=== PATIENT | female | born 1960 | race Caucasian/White ===

== ENCOUNTER → 2025-02-14 | Outpatient (CLI) | payer MEDICARE, SELFPAY ==
--- NOTE | 2025-02-14 | XR_ITS ---
Examination: Knee bilateral, 6 views Technique: Knee AP, lateral, oblique each knee total 6 views Date and time of exam: February 14, 2025 1400 hours INDICATIONS: Bilateral knee pain beginning several years ago. FINDINGS: Moderate osteopenia Bilateral advanced tricompartment osteoarthritis, most severe narrowing medial joint spaces No fractures Meniscus calcification IMPRESSION: Bilateral advanced tricompartment osteoarthritis
--- NOTE | 2025-02-14 12:20 | XR_ITS ---
Examination: Bone densitometry Date and time of exam:February 14, 2025 1228 hours INDICATIONS: Menopause age 50 vitamin D 5 years, family history father hip fracture, grandmother osteoporosis Technique: Lumbar spine and hip total bone mineralization values of an calculated. Peak reference and age match control results have been displayed. Findings: Lumbar spine total bone mineralization is1.312 gm/cm2. This is 2.4 standard deviations above peak reference. This is 4.3 standard deviations above age-matched controls. Hip total bone mineralization is 0.995 gm/cm2 This is 0.4 standard deviations above peak reference. This is 1.7 standard deviations above age-matched controls Impression: There is normal mineralization based on lumbar spine measurements. There is normal mineralization based on hip measurements Lumbar mineralization is decreased 0.5% compare with October 31, 2021 Hip mineralization is decreased 7.4% compared with October 31, 2021
== END | disposition home or self-care (01) ==
LOC: CDIM 11:51
PROVIDERS: Referring Provider Nurse Practitioner; Visit Provider Nurse Practitioner
DX: M81.0 Age-related osteoporosis without current pathological fracture (principal); M17.0 Bilateral primary osteoarthritis of knee
CPT/HCPCS: 73562; 77080

== ENCOUNTER 2025-03-28 10:00 | Outpatient (RCR) | payer MEDICARE, SELFPAY ==
--- NOTE | 2025-03-13 11:51 | PTNOTE_ITS ---
PT OP Initial Eval Patient Information Outpatient Physical Therapy Treatment Date: 03/13/25 Visit Reasons: Bilateral knee pain Medical Diagnosis: Bilateral Knee Pain Treatment Dx #1: Bilateral Knee Pain Treatment Dx #2: Bilateral Knee Mobility Deficits Start of Care: 03/13/25 Date of Onset: 5 years ago Smoking Status Smoking Status: Never smoker Initial Assessment Subjective: Pt is a 64 y/o female reports of chronic knee pain L>R worsening lately. Pt's average knee pain is 6-8/10 based upon activities. Pt's most xray showed moderate to severe DDD of the knee L>R. Pt is pending knee MRI. Pt has limitaiton with standing, walking, kneeling, squating, cooking, chores, and recreational activities. Objective: Left Knee AROM: -10 deg to 100 deg with pain Right Knee AROM: 0 deg to 120 deg with pain Knee MMTs: grossly 4-/5 Hip MMTs: grossly 3+/5 Muscle Length: Hs tightness L>R Assessment: Pt demonstrate bilateral knee pain with moblity deficits consistent with xray findings leading to difficulty with ADLs. Due to the state and nature of patient's knee Pt has poor prognosis with physical therapy and will recommend ortho consult if conservative treatments does not help. If patient's pain continues to persist Pt will be refer back to provider for further consultation. 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
--- NOTE | 2025-03-28 11:12 | PT.ODAYNRPT ---
PT Outpatient Daily Note OP Daily Note Outpatient Physical Therapy Treatment Date: 03/28/25 Visit Reasons: Bilateral knee pain Subjective: Pt's knee is about the same. No change in pain lately. Pt's MD was able to order MRI. MRI is pending in April 2025 Objective: Please see flow chart for list of ther ex performed Assessment: tolerate supine exercises; increase knee flexion AROM bilaterally post PT session Plan: Continue with PT Length of Time (minutes) of Treatment: 30 Minutes Procedure Charges Therapeutic Exercise 30 minutes: Yes
== END 2025-03-29 23:59 | disposition home or self-care (01) ==
LOC: CPTX 10:00
PROVIDERS: PCP Nurse Practitioner; Referring Provider Nurse Practitioner; Visit Provider Nurse Practitioner
DX: M25.562 Pain in left knee (principal); M25.561 Pain in right knee; G89.29 Other chronic pain; R26.2 Difficulty in walking, not elsewhere classified
CPT/HCPCS: 97110; 97162

== ENCOUNTER → 2025-03-30 | Outpatient (CLI) | payer MEDICARE, SELFPAY ==
--- NOTE | 2025-03-30 14:45 | XR_ITS ---
Exam: MRI knee without contrast, right Date and time of exam: March 30, 2025 1552 hours Comparison October 18, 2015 INDICATIONS: Right knee pain 7 months instability, history medial meniscus tears Technique: Multiple axial, coronal, and sagittal sections on the knee have been obtained. T2-Weighted sagittal, fat-suppressed images, TR 3,500, TE 62, T2 weighted coronal fat-saturated images, TR 3,500, TE 62 Proton density sagittal sections, TR 1800, TE 31. T-1 weighted coronal images, TR 524, TE 13.0 Findings: Medial meniscus anterior horn is intact. Medial meniscus, body extrusion the joint space with truncation inner margin. Posterior horn medial meniscus replaced by isointense signal. Lateral meniscus anterior horn is intact Lateral meniscus, body is intact Posterior horn lateral meniscus is intact Anterior cruciate ligament moderately attenuated Posterior cruciate ligament appears intact. Knee effusion is moderate. Quadriceps and patellar tendons appear intact. There is no evidence of tendinosis. Inflammatory change or fracture of Hoffa's fat pad is not seen. Medial patellar facet demonstrates severe thinning. Lateral patellar facet cartilage demonstrates severe thinning. Trochlear cartilage demonstrates severe thinning. Marrow signal adequate. Medial collateral ligament appears intact. No meniscocapsular separation is seen. Illiotibial band and fibular collateral ligament are intact. Biceps femoris tendons appear intact. Medial femoral condylar articular cartilage demonstrates severe thinning. Lateral femoral condylar articular cartilage demonstratesmoderate thinning. Tibial plateau cartilage demonstrates severe medial thinning. Impression: Tears of the body and posterior horn medial meniscus Moderate attenuation anterior cruciate ligament Severe thinning cartilage medial and patellofemoral joints
--- NOTE | 2025-03-30 15:15 | XR_ITS ---
Exam: MRI knee without contrast, left Date and time of exam: March 30, 2025 1409 hours INDICATIONS: Medial left knee pain beginning 7 months ago Technique: Multiple axial, coronal, and sagittal sections on the knee have been obtained. T2-Weighted sagittal, fat-suppressed images, TR 3,500, TE 62, T2 weighted coronal fat-saturated images, TR 3,500, TE 62 Proton density sagittal sections, TR 1800, TE 31. T-1 weighted coronal images, TR 524, TE 13.0 Findings: Medial meniscus anterior horn truncation inner margin. Medial meniscus, body replaced by a also intense signal and extruded from the joint space. Posterior horn medial meniscus complex tears including horizontal linear and vertical components. Lateral meniscus anterior horn is intact Lateral meniscus, body is intact Posterior horn lateral meniscus is intact Anterior cruciate ligament is markedly attenuated Posterior cruciate ligament appears intact. Knee effusion is moderate. Quadriceps and patellar tendons appear intact. There is no evidence of tendinosis. Inflammatory change or fracture of Hoffa's fat pad is not seen. Medial patellar facet demonstrates severe thinning. Lateral patellar facet cartilage demonstrates severe thinning. Trochlear cartilage demonstrates severe thinning. Marrow signal adequate. Medial collateral ligament appears intact. No meniscocapsular separation is seen. Illiotibial band and fibular collateral ligament are intact. Biceps femoris tendons appear intact. Medial femoral condylar articular cartilage demonstrates severe thinning. Lateral femoral condylar articular cartilage demonstratesmoderate thinning. Tibial plateau cartilage demonstrates severe medial thinning. Impression: Complex extensive tears body and posterior horn medial meniscus Severe thinning cartilage patellofemoral and medial joint spaces
== END | disposition home or self-care (01) ==
PROVIDERS: PCP Nurse Practitioner; Referring Provider Nurse Practitioner; Visit Provider Nurse Practitioner
DX: S83.242A Other tear of medial meniscus, current injury, left knee, initial encounter (principal); S83.241A Other tear of medial meniscus, current injury, right knee, initial encounter; X58.XXXA Exposure to other specified factors, initial encounter; M25.862 Other specified joint disorders, left knee; M25.861 Other specified joint disorders, right knee
CPT/HCPCS: 73718

== ENCOUNTER 2025-05-25 08:58 | Outpatient (AMB) | payer MEDICARE, SELFPAY ==
[2025-05-25 09:19] VITALS: BP 125/84; PULSE 59; RESP 18; TEMP 36.8; O2SAT 96; BMI 33.6
--- NOTE | 2025-05-25 09:19 | PD.ORTHCLVIS ---
Vital signs 05/25/25 09:19 Height 1.68 m Height Method Stated Weight 94.546 kg Weight Measurement Method Standing Scale BMI 33.6 BP 125/84 Blood Pressure Source Automatic Cuff Blood Pressure Location Right Upper Arm Position Sitting Respiration 18 Pulse 59 L Pulse Source Monitor Temp 98.3 F Temp Source Temporal Artery Scan Pulse Oximetry (%) 96 Oxygen Delivery Method Room Air Med/Allergies Allergies & Medications Allergies cephalexin (From Keflex) Allergy (Intermediate, Verified 05/25/25 09:20) Rash codeine Allergy (Intermediate, Verified 05/25/25 09:20) itching Sulfa (Sulfonamide Antibiotics) Allergy (Intermediate, Verified 05/25/25 09:20) Rash Medication Reconciliation atorvastatin 10 mg tablet 10 mg PO DAILY 03/07/22 [History Confirmed 05/25/25] irbesartan 300 mg tablet 300 mg PO DAILY 03/07/22 [History Confirmed 05/25/25] omeprazole 20 mg capsule,delayed release 10 mg PO QDAY 03/07/22 [History Confirmed 05/25/25] loratadine 10 mg tablet (Claritin) 10 mg PO QDAY 05/05/22 [History Confirmed 05/25/25] amlodipine 10 mg tablet (Norvasc) 10 mg PO QDAY 05/25/25 [History Confirmed 05/25/25] atorvastatin 10 mg tablet (Lipitor) 10 mg PO QDAY 05/25/25 [History Confirmed 05/25/25] celecoxib 100 mg capsule 100 mg PO BID 05/25/25 [History Confirmed 05/25/25] Exam Exam Patient is in no acute distress and is cooperative with the examination today. Breathing is nonlabored. In no respiratory distress. Bilateral extremities were evaluated and demonstrates sensation intact to light touch. Palpable pedal pulses are present. No significant edema is present. Bilateral hips were examined. The patient has no pain with log roll of the hips. Internal rotation to 30 degrees and external rotation to 30 degrees is painless. Negative FADIR. The left knee was examined. The left knee is in varus alignment. Range of motion from 0-115 degrees. Knee is stable to varus and valgus as well as AP translation with <5mm. Patient has a negative McMurrays. There is no pain with patellofemoral compression and no crepitus noted. The knee is tender to palpation medially. The right knee was also examined. The right knee is in varus alignment. Range of motion from 0-120 degrees. Knee is stable to varus and valgus as well as AP translation with <5mm. Patient has a negative McMurrays. There is no pain with patellofemoral compression and no crepitus noted. The knee is tender to palpation medially. Assessment and Plan Problem List (1) Degenerative arthritis of knee, bilateral: Status: Acute Plan: Patient is a 64-year-old female with bilateral knee pain and severe bilateral knee arthritis. We discussed different treatment options. We will start with cortisone injections of as well as weightbearing x-rays. She Diaz has severe [id number] arthritis of both knees as her when nonweightbearing x-rays demonstrate complete obliteration. She is not interested in surgery at this time and would like to continue with conservative management Advanced Care Planning Discussion Advance care planning discussed with:: patient Office Procedures GNS Level of Care Nursing/Assessment Patient Status: Established Patient Nursing Assessment/Reassesment: Medication Reconciliation, Update PMH in EMR and Vital Signs Coordination of Care: Complex Care and Chronic Disease 1-5, Education Complex Pt/Fam, Consent,records obtained, informed consent, Results/Orders obtained and Staff clarify orders Established Patient Charge Established Patient Point Assignment: 95 Established Patient Point Charge: EP Level 3 (80-115) MA Intake Visit Data Collection New Patient or Established: Established Patient (seen at [facility] within 3 years) Reason for Visit:: BILATERAL KNEE PAIN, LEFT IS WORSE Seen by Clinical Staff ONLY (RN/MA): No Verbal consent obtained for Telemed visit?: No Dependency Counselor Required: No PCP or OBGYN visit in last 3 months: Yes Hx Now: No Do You Feel Safe at Home: Yes Authorities Contacted: N/A Questionairres Past Medical History Past Medical History Have you ever been diagnosed with any of the following: Neurological Problems Seizures: No Cardiology Problems Heart Murmur: Yes Hypercholesterolemia: Yes (TAKES MED) Congestive Heart Failure: No Edema: No Cellulitis: No Hypertension: Yes (TAKES MED) Varicose Veins: No Respiratory Problems Chronic Obstructive Pulmonary Disease (COPD): No Pneumonia: No Tuberculosis: No Pulmonary Embolism: No Sleep Apnea: No Stomache/Intestinal Problems Hepatitis: No Gastroesophageal Reflux Disease: Yes Obesity: Yes Genital/Urinary Problems Renal Disease: No Reproductive Problems Previous Pregnancies: Yes (X4) Musculoskeletal Problems Arthritis: Yes Endocrine Problems Diabetes Mellitus Type 1: No Diabetes Mellitus Type 2: No Other Problems Hospitalization: No Shingles: Yes (2009) Falls: No Blood Transfusions: No Anesthesia Reactions: No Chemotherapy: No Radiation Therapy: No MRSA: No Chicken Pox: Yes Measles: Yes Mumps: Yes Rubella (Maltese Measles): Yes Cancer: No Surgical History Hysterectomy: No (1 tube and ovary removed) Pacemaker: No Thyroidectomy: No Subjective Visit Visit for: new patient and knee Immunization / Flu Flu Vaccine in the Last 12 Months: Yes Flu Vaccine Exclusion Criteria: Already Received History of Present Illness Chief complaint: bilateral knee pain with left being worse Date of injury / onset of symptoms: years Date of 1st surgery (if applicable): left meniscus sx Vianca is a pleasant 64-year-old female with severe bilateral knee arthritis. This has been ongoing for a while. She has tried formal physical therapy as well as Celebrex which helps quite a bit. She is going on a trip in late May and would like injections closer to then. She reports that she is interested in surgery at this time Personal History Occupation: retired Red flag PMH: BMI and other (specify) BMI Counceling provided: Yes Pain Pain level (0-10): 3 Pain duration: constant Pain location: inside (medial), outside (lateral) and anterior Pain quality: sharp, dull and aching Pain timing: increases with activity and stairs Associated signs & symptoms: none Ambulatory data Ambulatory device: none Treatments Improvement with previous injections: No Improvement with PT: Yes Improvement with NSAIDS: yes Review of Systems Review of Systems: All systems negative unless otherwise noted in HPI.
== END 2025-05-25 09:46 | disposition home or self-care (01) ==
PROVIDERS: PCP Nurse Practitioner; Referring Provider Nurse Practitioner; Supervising Provider Orthopaedic Surgery Adult Reconstructive Orthopaedic Surgery; Visit Provider Orthopaedic Surgery Adult Reconstructive Orthopaedic Surgery
DX: M17.0 Bilateral primary osteoarthritis of knee (principal); M25.562 Pain in left knee; M25.561 Pain in right knee; I10 Essential (primary) hypertension; E78.00 Pure hypercholesterolemia, unspecified; K21.9 Gastro-esophageal reflux disease without esophagitis
CPT/HCPCS: 99213; G0463

== ENCOUNTER 2025-06-20 09:38 | Outpatient (AMB) | payer MEDICARE, SELFPAY ==
--- NOTE | 2025-06-20 10:08 | ORTHONT_ITS ---
Vital signs 06/20/25 10:09 Height 1.68 m Height Method Stated Weight 93.1 kg Weight Measurement Method Standing Scale BMI 33.0 BP 121/79 Blood Pressure Source Automatic Cuff Blood Pressure Location Left Upper Arm Position Sitting Respiration 18 Pulse 75 Pulse Source Monitor Temp 97.7 F Temp Source Temporal Artery Scan Pulse Oximetry (%) 96 Oxygen Delivery Method Room Air Med/Allergies Allergies & Medications Allergies cephalexin (From Keflex) Allergy (Intermediate, Verified 06/20/25 10:10) Rash codeine Allergy (Intermediate, Verified 06/20/25 10:10) itching Sulfa (Sulfonamide Antibiotics) Allergy (Intermediate, Verified 06/20/25 10:10) Rash Medication Reconciliation atorvastatin 10 mg tablet 10 mg PO DAILY 03/07/22 [History Confirmed 06/20/25] irbesartan 300 mg tablet 300 mg PO DAILY 03/07/22 [History Confirmed 06/20/25] omeprazole 20 mg capsule,delayed release 10 mg PO QDAY 03/07/22 [History Confirmed 06/20/25] loratadine 10 mg tablet (Claritin) 10 mg PO QDAY 05/05/22 [History Confirmed 06/20/25] amlodipine 10 mg tablet (Norvasc) 10 mg PO QDAY 05/25/25 [History Confirmed 06/20/25] atorvastatin 10 mg tablet (Lipitor) 10 mg PO QDAY 05/25/25 [History Confirmed 06/20/25] celecoxib 100 mg capsule 100 mg PO BID 05/25/25 [History Confirmed 06/20/25] Exam Exam Patient is in no acute distress and is cooperative with the examination today. Breathing is nonlabored. In no respiratory distress. Bilateral extremities were evaluated and demonstrates sensation intact to light touch. Palpable pedal pulses are present. No significant edema is present. Bilateral hips were examined. The patient has no pain with log roll of the hips. Internal rotation to 30 degrees and external rotation to 30 degrees is painless. Negative FADIR. The left knee was examined. The left knee is in varus alignment. Range of motion from 0-115 degrees. Knee is stable to varus and valgus as well as AP translation with <5mm. Patient has a negative McMurrays. There is no pain with patellofemoral compression and no crepitus noted. The knee is tender to palpation medially. The right knee was also examined. The right knee is in varus alignment. Range of motion from 0-120 degrees. Knee is stable to varus and valgus as well as AP translation with <5mm. Patient has a negative McMurrays. There is no pain with patellofemoral compression and no crepitus noted. The knee is tender to palpation medially. Assessment and Plan Problem List (1) Degenerative arthritis of knee, bilateral: Status: Acute Plan: Patient is a 64-year-old female with bilateral knee pain and severe bilateral knee arthritis. We discussed different treatment options. We will start with cortisone injections of as well as weightbearing x-rays. She has severe [id number] arthritis of both knees as her when nonweightbearing x-rays demonstrate complete obliteration. She is not interested in surgery at this time and would like to continue with conservative management Recommend knee cortisone injection as patient would like to proceed with conservative treatment at this time. The risks and benefits of the procedure were reviewed with the patient and patient gave verbal consent to continue with the procedure. Procedure: performed by Dr. Contreras Using sterile technique the left knee was thoroughly prepped with alcohol, and approximately 1 cc of Kenalog 40 mg/mL and 4 cc of 1% lidocaine was injected without resistance into the medial tibial femoral joint space. The patient tolerated the procedure. Advanced Care Planning Discussion Advance care planning discussed with:: patient Office Procedures GNS Level of Care Nursing/Assessment Patient Status: Established Patient Nursing Assessment/Reassesment: Medication Reconciliation, Update PMH in EMR and Vital Signs Coordination of Care: Complex Care and Chronic Disease 1-5, Education Complex Pt/Fam, Consent,records obtained, informed consent, Results/Orders obtained and Staff clarify orders Established Patient Charge Established Patient Point Assignment: 95 Established Patient Point Charge: EP Level 3 (80-115) Medication Given Medication Given Medication Given: Yes Documented Dose Given: 4 Route: Infiitration Medication Given Medication Given Medication Given: Yes Documented Dose Given: 1 Route: Infiitration Office Meds lidocaine HCl 10 mg/mL (1 %) injection solution Performing Provider: Vinnie Contreras MD Performing Location: [facility] Administered by: Vinnie Contreras MD on 06/20/25 10:00 Dose Route Admin Location Dispensed Lot Number Expiration Date [facility] Commodity Director 200 mg Infiltration KNEE 20 mL [id number] 12/30/28 98596-864-84 [employer] triamcinolone acetonide 40 mg/mL suspension for injection Performing Provider: Vinnie Contreras MD Performing Location: [facility] Administered by: Vinnie Contreras MD on 06/20/25 10:00 Dose Route Admin Location Dispensed Lot Number Expiration Date [facility] Commodity Director 40 mg IM KNEE 1 mL [id number] 12/30/26 03765-090-98 MYLAN SHELL ITUTI MA Intake Visit Data Collection New Patient or Established: Established Patient (seen at [facility] within 3 years) Reason for Visit:: LEFT KNEE PAIN Seen by Clinical Staff ONLY (RN/MA): No PCP or OBGYN visit in last 3 months: Yes Hx Now: No Do You Feel Safe at Home: Yes Authorities Contacted: N/A Questionairres Past Medical History Past Medical History Have you ever been diagnosed with any of the following: Neurological Problems Seizures: No Cardiology Problems Heart Murmur: Yes Hypercholesterolemia: Yes (TAKES MED) Congestive Heart Failure: No Edema: No Cellulitis: No Hypertension: Yes (TAKES MED) Varicose Veins: No Respiratory Problems Chronic Obstructive Pulmonary Disease (COPD): No Pneumonia: No Tuberculosis: No Pulmonary Embolism: No Sleep Apnea: No Smoking: No Smoking Exposure: No Stomache/Intestinal Problems Hepatitis: No Gastroesophageal Reflux Disease: Yes Obesity: Yes Genital/Urinary Problems Renal Disease: No Reproductive Problems Previous Pregnancies: Yes (X4) Musculoskeletal Problems Arthritis: Yes Endocrine Problems Diabetes Mellitus Type 1: No Diabetes Mellitus Type 2: No Other Problems Hospitalization: No Shingles: Yes (2009) Falls: No Blood Transfusions: No Anesthesia Reactions: No Chemotherapy: No Radiation Therapy: No MRSA: No Chicken Pox: Yes Measles: Yes Mumps: Yes Rubella (Faroese Measles): Yes Cancer: No Surgical History Hysterectomy: No (1 tube and ovary removed) Pacemaker: No Thyroidectomy: No Subjective Visit Visit for: follow up visit and knee Immunization / Flu Flu Vaccine in the Last 12 Months: No Flu Vaccine Exclusion Criteria: No Exclusion Criteria History of Present Illness Chief complaint: bilateral knee pain with left being worse Date of injury / onset of symptoms: years Date of 1st surgery (if applicable): left meniscus osvaldox Vianca is a pleasant 64-year-old female with severe bilateral knee arthritis. This has been ongoing for a while. She has tried formal physical therapy as well as Celebrex which helps quite a bit. She is going on a trip in late May and would like injections closer to then. She reports that she is not interested in surgery at this time Personal History Occupation: retired Red flag PMH: BMI and other (specify) BMI Counceling provided: Yes Pain Pain level (0-10): 1 Pain duration: constant Pain location: outside (lateral) and anterior Pain quality: sharp Pain timing: increases with activity and stairs Associated signs & symptoms: none Ambulatory data Ambulatory device: none Treatments Improvement with previous injections: No Improvement with PT: No Improvement with NSAIDS: no Review of Systems Review of Systems: All systems negative unless otherwise noted in HPI.
[2025-06-20 10:09] VITALS: BP 121/79; PULSE 75; RESP 18; TEMP 36.5; O2SAT 96; BMI 33.0
== END 2025-06-20 10:30 | disposition home or self-care (01) ==
PROVIDERS: PCP Nurse Practitioner; Referring Provider Nurse Practitioner; Supervising Provider Orthopaedic Surgery Adult Reconstructive Orthopaedic Surgery; Visit Provider Orthopaedic Surgery Adult Reconstructive Orthopaedic Surgery
DX: M17.0 Bilateral primary osteoarthritis of knee (principal); M25.562 Pain in left knee; M25.561 Pain in right knee; I10 Essential (primary) hypertension; E78.00 Pure hypercholesterolemia, unspecified; K21.9 Gastro-esophageal reflux disease without esophagitis; E66.9 Obesity, unspecified; Z68.33 Body mass index [BMI] 33.0-33.9, adult; Z71.3 Dietary counseling and surveillance
CPT/HCPCS: 20610; 99213; J3301; J3490; G0463

== ENCOUNTER → 2025-07-25 | Outpatient (CLI) | payer MEDICARE, SELFPAY ==
--- NOTE | 2025-07-25 | XR_ITS ---
Examination: Bilateral knees 2 views Right lateral knee left lateral knee 2 views Bilateral axial knee single view TECHNIQUE: Bilateral AP knees standing single view, bilateral PND standing single view flexure Right lateral mid left lateral knee 2 views Bilateral adnexal knees single view FINDINGS: Prominent osteopenia Severe narrowing, [id number] medial joint spaces Advanced bilateral osteoarthritis lateral patellofemoral joints No fractures IMPRESSION: Bilateral advanced tricompartment osteoarthritis, including severe narrowing bone on bone medial joint spaces
== END | disposition home or self-care (01) ==
PROVIDERS: PCP Nurse Practitioner; Referring Provider Orthopaedic Surgery Adult Reconstructive Orthopaedic Surgery; Visit Provider Orthopaedic Surgery Adult Reconstructive Orthopaedic Surgery
DX: M17.0 Bilateral primary osteoarthritis of knee (principal); M25.862 Other specified joint disorders, left knee; M25.861 Other specified joint disorders, right knee
CPT/HCPCS: 73564

== ENCOUNTER 2025-08-10 15:34 | Outpatient (AMB) | payer MEDICARE, SELFPAY ==
--- NOTE | 2025-08-10 15:42 | ORTHONT_ITS ---
Vital signs 08/10/25 15:43 Height 1.68 m Height Method Measured Weight 89.131 kg Weight Measurement Method Standing Scale BMI 31.6 BP 127/81 Blood Pressure Source Automatic Cuff Blood Pressure Location Left Upper Arm Position Sitting Respiration 18 Pulse 74 Pulse Source Monitor Temp 98.0 F Temp Source Temporal Artery Scan Pulse Oximetry (%) 95 Oxygen Delivery Method Room Air Med/Allergies Allergies & Medications Allergies cephalexin (From Keflex) Allergy (Intermediate, Verified 08/10/25 15:44) Rash codeine Allergy (Intermediate, Verified 08/10/25 15:44) itching Sulfa (Sulfonamide Antibiotics) Allergy (Intermediate, Verified 08/10/25 15:44) Rash Medication Reconciliation atorvastatin 10 mg tablet 10 mg PO DAILY 03/07/22 [History Confirmed 08/10/25] irbesartan 300 mg tablet 300 mg PO DAILY 03/07/22 [History Confirmed 08/10/25] omeprazole 20 mg capsule,delayed release 10 mg PO QDAY 03/07/22 [History Confirmed 08/10/25] loratadine 10 mg tablet (Claritin) 10 mg PO QDAY 05/05/22 [History Confirmed 08/10/25] amlodipine 10 mg tablet (Norvasc) 10 mg PO QDAY 05/25/25 [History Confirmed 08/10/25] atorvastatin 10 mg tablet (Lipitor) 10 mg PO QDAY 05/25/25 [History Confirmed 08/10/25] celecoxib 100 mg capsule 100 mg PO BID 05/25/25 [History Confirmed 08/10/25] Exam Exam Patient is in no acute distress and is cooperative with the examination today. Breathing is nonlabored. In no respiratory distress. Bilateral extremities were evaluated and demonstrates sensation intact to light touch. Palpable pedal pulses are present. No significant edema is present. Bilateral hips were examined. The patient has no pain with log roll of the hips. Internal rotation to 30 degrees and external rotation to 30 degrees is painless. Negative FADIR. The left knee was examined. The left knee is in varus alignment. Range of motion from 0-115 degrees. Knee is stable to varus and valgus as well as AP translation with <5mm. Patient has a negative McMurrays. There is no pain with patellofemoral compression and no crepitus noted. The knee is tender to palpation medially. The right knee was also examined. The right knee is in varus alignment. Range of motion from 0-120 degrees. Knee is stable to varus and valgus as well as AP translation with <5mm. Patient has a negative McMurrays. There is no pain with patellofemoral compression and no crepitus noted. The knee is tender to palpation medially. Bilateral knee x-rays demonstrates complete joint space obliteration medially and laterally with significant osteophytes. Assessment and Plan Problem List (1) Degenerative arthritis of knee, bilateral: Status: Acute Plan: Patient is a 64-year-old female with bilateral knee pain and severe bilateral knee arthritis. She has significant arthritis of both knees and failed conservative treatment with injections anti-inflammatories and physical therapy. We thus discussed total knee replacement as a medial option. The left knee is worse. The nature and purpose of the total knee replacement, alternative method(s) of treatment, the material risks involved, and the possibility of complications were fully explained to the patient. The patient does NOT have any of the following contraindications to TKA: - Active infection of the knee joint, OR - Active systemic bacteremia, OR - Active skin infection or open wound at surgical site, OR - Neuropathic arthritis, OR - Severe, rapidly progressive neurological disease, OR - Severe medical condition that makes risks of surgery outweigh the potential benefit The patient was told the most common risks and complications associated with a total knee replacement include, but are not limited to: blood clots in the leg, fatal pulmonary embolism, dislocation of the prosthesis, intraoperative and postoperative fractures of the femur or tibia, infection, failure of the prosthesis or grafting materials, complications from anesthesia, reactions to blood transfusions, postoperative leg length inequality, instability of the knee replacement, nerve damage or injury, vascular injury, delayed wound healing, infection, other injury or even . In addition, there are risks associated with anesthesia given during this operation. Also, the patient was told that after undergoing a total knee replacement there may still be persistent pain or disability. The patient was informed that the success of this operation in part depends upon the mechanical devices which are going to be implanted and that these devices can fail or malfunction, and may need to be repaired or replaced and there are no guarantees as to the longevity of this device or its parts and that it or its parts could fail prematurely. The patient was also notified that during the course of surgery, there may be a need to use bone graft from donors, and that any bone graft used will be carefully screened for communicable diseases, including AIDS, hepatitis, Pal-Creutzfeldt, or other diseases, but despite the screening procedures, the re is a small chance that they could contract one of these diseases. Finally, the patient was asked to follow completely and fully with all advice and recommended treatments, and that recovery and ultimate outcome are affected by their compliance with recommended treatment. We discussed the risks, benefits and treatment alternatives, and the patient is interested in proceeding with surgery. We will try to set this up as expeditiously as possible. Advanced Care Planning Discussion Advance care planning discussed with:: patient Office Procedures GNS Level of Care Nursing/Assessment Patient Status: Established Patient Nursing Assessment/Reassesment: Medication Reconciliation, Orthostatic Vitals, Update PMH in EMR and Vital Signs Coordination of Care: Complex Care and Chronic Disease 1-5, Education Complex Pt/Fam, Consent,records obtained, informed consent, Results/Orders obtained and Staff clarify orders Established Patient Charge Established Patient Point Assignment: 105 Established Patient Point Charge: EP Level 3 (80-115) MA Intake Visit Data Collection New Patient or Established: Established Patient (seen at [facility] within 3 years) Reason for Visit:: LEFT KNEE PAIN Seen by Clinical Staff ONLY (RN/MA): No PCP or OBGYN visit in last 3 months: Yes Hx Now: No Do You Feel Safe at Home: Yes Authorities Contacted: N/A Questionairres Past Medical History Past Medical History Have you ever been diagnosed with any of the following: Neurological Problems Seizures: No Cardiology Problems Heart Murmur: Yes Hypercholesterolemia: Yes (TAKES MED) Congestive Heart Failure: No Edema: No Cellulitis: No Hypertension: Yes (TAKES MED) Varicose Veins: No Respiratory Problems Chronic Obstructive Pulmonary Disease (COPD): No Pneumonia: No Tuberculosis: No Pulmonary Embolism: No Sleep Apnea: No Smoking: No Smoking Exposure: No Stomache/Intestinal Problems Hepatitis: No Gastroesophageal Reflux Disease: Yes Obesity: Yes Genital/Urinary Problems Renal Disease: No Reproductive Problems Previous Pregnancies: Yes (X4) Musculoskeletal Problems Arthritis: Yes Endocrine Problems Diabetes Mellitus Type 1: No Diabetes Mellitus Type 2: No Other Problems Hospitalization: No Shingles: Yes (2009) Falls: No Blood Transfusions: No Anesthesia Reactions: No Chemotherapy: No Radiation Therapy: No MRSA: No Chicken Pox: Yes Measles: Yes Mumps: Yes Rubella (Romansh Measles): Yes Cancer: No Surgical History Hysterectomy: No (1 tube and ovary removed) Pacemaker: No Thyroidectomy: No Subjective Visit Visit for: follow up visit and knee Immunization / Flu Flu Vaccine in the Last 12 Months: No Flu Vaccine Exclusion Criteria: No Exclusion Criteria History of Present Illness Chief complaint: bilateral knee pain with left being worse Date of injury / onset of symptoms: years Date of 1st surgery (if applicable): left meniscus sx Vianca is a pleasant 64-year-old female with severe bilateral knee arthritis. This has been ongoing for a while. She has tried formal physical therapy as well as Celebrex which helps quite a bit. She had some relief of the left knee pain has come back and is now screeching. She like to proceed with a total knee replacement as the pain is affecting her quality life and happiness. She has tried injections anti-inflammatories and physical therapy at this point. Personal History Occupation: retired Red flag PMH: BMI and other (specify) BMI Counceling provided: Yes Pain Pain level (0-10): 1 Pain duration: constant Pain location: outside (lateral) and anterior Pain quality: sharp Pain timing: increases with activity and stairs Associated signs & symptoms: none Ambulatory data Ambulatory device: none Treatments Improvement with previous injections: No Improvement with PT: No Improvement with NSAIDS: no Review of Systems Review of Systems: All systems negative unless otherwise noted in HPI.
[2025-08-10 15:43] VITALS: BP 127/81; PULSE 74; RESP 18; TEMP 36.7; O2SAT 95; BMI 31.6
== END 2025-08-10 15:57 | disposition home or self-care (01) ==
LOC: HODSRG 15:34
PROVIDERS: PCP Nurse Practitioner; Referring Provider Nurse Practitioner; Supervising Provider Orthopaedic Surgery Adult Reconstructive Orthopaedic Surgery; Visit Provider Orthopaedic Surgery Adult Reconstructive Orthopaedic Surgery
DX: M17.0 Bilateral primary osteoarthritis of knee (principal); M25.562 Pain in left knee; M25.561 Pain in right knee; I10 Essential (primary) hypertension; E78.00 Pure hypercholesterolemia, unspecified; K21.9 Gastro-esophageal reflux disease without esophagitis; E66.9 Obesity, unspecified; Z71.3 Dietary counseling and surveillance; Z68.31 Body mass index [BMI] 31.0-31.9, adult
CPT/HCPCS: 99213; G0463

== ENCOUNTER 2025-09-19 09:44 | Outpatient (AMB) | payer MEDICARE, SELFPAY ==
[2025-09-19 10:15] VITALS: BP 108/71; PULSE 72; RESP 18; TEMP 36.8; O2SAT 96; BMI 31.0
--- NOTE | 2025-09-19 10:15 | PD.ORTHCLVIS ---
Vital signs 09/19/25 10:15 Height 1.68 m Height Method Measured Weight 87.685 kg Weight Measurement Method Standing Scale BMI 31.0 BP 108/71 Blood Pressure Source Automatic Cuff Blood Pressure Location Left Upper Arm Position Sitting Respiration 18 Pulse 72 Pulse Source Monitor Temp 98.2 F Temp Source Temporal Artery Scan Pulse Oximetry (%) 96 Oxygen Delivery Method Room Air Med/Allergies Allergies & Medications Allergies cephalexin (From Keflex) Allergy (Intermediate, Verified 09/19/25 10:16) Rash codeine Allergy (Intermediate, Verified 09/19/25 10:16) itching Sulfa (Sulfonamide Antibiotics) Allergy (Intermediate, Verified 09/19/25 10:16) Rash Medication Reconciliation atorvastatin 10 mg tablet 10 mg PO DAILY 03/07/22 [History Confirmed 09/19/25] irbesartan 300 mg tablet 300 mg PO DAILY 03/07/22 [History Confirmed 09/19/25] omeprazole 20 mg capsule,delayed release 10 mg PO QDAY 03/07/22 [History Confirmed 09/19/25] loratadine 10 mg tablet (Claritin) 10 mg PO QDAY 05/05/22 [History Confirmed 09/19/25] amlodipine 10 mg tablet (Norvasc) 10 mg PO QDAY 05/25/25 [History Confirmed 09/19/25] atorvastatin 10 mg tablet (Lipitor) 10 mg PO QDAY 05/25/25 [History Confirmed 09/19/25] celecoxib 100 mg capsule 100 mg PO BID 05/25/25 [History Confirmed 09/19/25] Exam Exam Patient is in no acute distress and is cooperative with the examination today. Breathing is nonlabored. In no respiratory distress. Bilateral extremities were evaluated and demonstrates sensation intact to light touch. Palpable pedal pulses are present. No significant edema is present. Bilateral hips were examined. The patient has no pain with log roll of the hips. Internal rotation to 30 degrees and external rotation to 30 degrees is painless. Negative FADIR. The left knee was examined. The left knee is in varus alignment. Range of motion from 0-115 degrees. Knee is stable to varus and valgus as well as AP translation with <5mm. Patient has a negative McMurrays. There is no pain with patellofemoral compression and no crepitus noted. The knee is tender to palpation medially. The right knee was also examined. The right knee is in varus alignment. Range of motion from 0-120 degrees. Knee is stable to varus and valgus as well as AP translation with <5mm. Patient has a negative McMurrays. There is no pain with patellofemoral compression and no crepitus noted. The knee is tender to palpation medially. Bilateral knee x-rays demonstrates complete joint space obliteration medially and laterally with significant osteophytes. Assessment and Plan Problem List (1) Degenerative arthritis of knee, bilateral: Status: Acute Plan: Patient is a 64-year-old female with bilateral knee pain and severe bilateral knee arthritis. She has significant arthritis of both knees and failed conservative treatment with injections anti-inflammatories and physical therapy. We thus discussed total knee replacement as a medial option. The left knee is worse. The nature and purpose of the total knee replacement, alternative method(s) of treatment, the material risks involved, and the possibility of complications were fully explained to the patient. The patient does NOT have any of the following contraindications to TKA: - Active infection of the knee joint, OR - Active systemic bacteremia, OR - Active skin infection or open wound at surgical site, OR - Neuropathic arthritis, OR - Severe, rapidly progressive neurological disease, OR - Severe medical condition that makes risks of surgery outweigh the potential benefit The patient was told the most common risks and complications associated with a total knee replacement include, but are not limited to: blood clots in the leg, fatal pulmonary embolism, dislocation of the prosthesis, intraoperative and postoperative fractures of the femur or tibia, infection, failure of the prosthesis or grafting materials, complications from anesthesia, reactions to blood transfusions, postoperative leg length inequality, instability of the knee replacement, nerve damage or injury, vascular injury, delayed wound healing, infection, other injury or even . In addition, there are risks associated with anesthesia given during this operation. Also, the patient was told that after undergoing a total knee replacement there may still be persistent pain or disability. The patient was informed that the success of this operation in part depends upon the mechanical devices which are going to be implanted and that these devices can fail or malfunction, and may need to be repaired or replaced and there are no guarantees as to the longevity of this device or its parts and that it or its parts could fail prematurely. The patient was also notified that during the course of surgery, there may be a need to use bone graft from donors, and that any bone graft used will be carefully screened for communicable diseases, including AIDS, hepatitis, Pal-Creutzfeldt, or other diseases, but despite the screening procedures, there is a small chance that they could contract one of these diseases. Finally, the patient was asked to follow completely and fully with all advice and recommended treatments, and that recovery and ultimate outcome are affected by their compliance with recommended treatment. We discussed the risks, benefits and treatment alternatives, and the patient is interested in proceeding with surgery. We will try to set this up as expeditiously as possible. Advanced Care Planning Discussion Advance care planning discussed with:: patient Office Procedures GNS Level of Care Nursing/Assessment Patient Status: Established Patient Nursing Assessment/Reassesment: Medication Reconciliation, Update PMH in EMR and Vital Signs Coordination of Care: Complex Care and Chronic Disease 1-5, Education Complex Pt/Fam, Consent,records obtained, informed consent, Results/Orders obtained and Staff clarify orders Established Patient Charge Established Patient Point Assignment: 95 Established Patient Point Charge: EP Level 3 (80-115) MA Intake Visit Data Collection New Patient or Established: Established Patient (seen at [facility] within 3 years) Reason for Visit:: PRE OP RIGHT TKA Seen by Clinical Staff ONLY (RN/MA): No Decoration Checker Required: No PCP or OBGYN visit in last 3 months: Yes Hx Now: No Do You Feel Safe at Home: Yes Authorities Contacted: N/A Questionairres Past Medical History Past Medical History Have you ever been diagnosed with any of the following: Neurological Problems Seizures: No Cardiology Problems Heart Murmur: Yes Hypercholesterolemia: Yes (TAKES MED) Congestive Heart Failure: No Edema: No Cellulitis: No Hypertension: Yes (TAKES MED) Varicose Veins: No Respiratory Problems Chronic Obstructive Pulmonary Disease (COPD): No Pneumonia: No Tuberculosis: No Pulmonary Embolism: No Sleep Apnea: No Smoking: No Smoking Exposure: No Stomache/Intestinal Problems Hepatitis: No Gastroesophageal Reflux Disease: Yes Obesity: Yes Genital/Urinary Problems Renal Disease: No Reproductive Problems Previous Pregnancies: Yes (X4) Musculoskeletal Problems Arthritis: Yes Endocrine Problems Diabetes Mellitus Type 1: No Diabetes Mellitus Type 2: No Other Problems Hospitalization: No Shingles: Yes (2009) Falls: No Blood Transfusions: No Anesthesia Reactions: No Chemotherapy: No Radiation Therapy: No MRSA: No Chicken Pox: Yes Measles: Yes Mumps: Yes Rubella ([place] Measles): Yes Cancer: No Surgical History Hysterectomy: No (1 tube and ovary removed) Pacemaker: No Thyroidectomy: No Subjective Visit Visit for: follow up visit and knee Immunization / Flu Flu Vaccine in the Last 12 Months: No Flu Vaccine Exclusion Criteria: No Exclusion Criteria History of Present Illness Chief complaint: PRE OP RIGHT TKA Date of injury / onset of symptoms: years Date of 1st surgery (if applicable): left meniscus osvaldox Vianca is a pleasant 64-year-old female with severe bilateral knee arthritis. This has been ongoing for a while. She has tried formal physical therapy as well as Celebrex which helps quite a bit. She had some relief of the left knee pain has come back and is now worse. She like to proceed with a total knee replacement as the pain is affecting her quality life and happiness. She has tried injections anti-inflammatories and physical therapy at this point. Personal History Occupation: retired Red flag PMH: BMI and other (specify) BMI Counceling provided: Yes Pain Pain level (0-10): 1 Pain duration: constant Pain location: outside (lateral) and anterior Pain quality: sharp Pain timing: increases with activity and stairs Associated signs & symptoms: none Ambulatory data Ambulatory device: walker (WALKER WAS DISPENSED ON 09/19/2025) Treatments Improvement with previous injections: No Improvement with PT: No Improvement with NSAIDS: no Review of Systems Review of Systems: All systems negative unless otherwise noted in HPI.
== END 2025-09-19 10:38 | disposition home or self-care (01) ==
PROVIDERS: PCP Nurse Practitioner; Referring Provider Nurse Practitioner; Supervising Provider Orthopaedic Surgery Adult Reconstructive Orthopaedic Surgery; Visit Provider Orthopaedic Surgery Adult Reconstructive Orthopaedic Surgery
DX: M17.0 Bilateral primary osteoarthritis of knee (principal); M25.562 Pain in left knee; M25.561 Pain in right knee; I10 Essential (primary) hypertension; E66.9 Obesity, unspecified; Z68.31 Body mass index [BMI] 31.0-31.9, adult
CPT/HCPCS: 99213; G0463

== ENCOUNTER → 2025-09-21 | Outpatient (CLI) | payer MEDICARE, SELFPAY ==
--- NOTE | 2025-09-21 14:30 | XR_ITS ---
Examination: CT left lower extremity, without contrast. 2-D sagittal reconstructions. 2-D coronal reconstructions. 3-D reconstructions. Date and time of exam: September 21, 2025, 1425 hours INDICATIONS: Diagnosis unilateral primary osteoarthritis left knee CTDI: vol (mGy): 13.2 DLP: (mGycm): 927 Technique: Multiple 1.25 mm axial sections of the left lower extremity without intravenous contrast have been obtained. 2-D sagittal and coronal reconstructions have been obtained. 3-D reconstructions have been obtained. Low dose protocols were performed. One or more of the following dose reduction techniques were used; automated exposure control, adjustment of the mA and/or KV according to patient size, use of iterative reconstruction technique. Findings: Moderate osteopenia Moderate narrowing left hip joint No left hip fracture or dislocation or avascular necrosis Severe narrowing, [id number] medial joint space left knee Advanced left knee tricompartment arthritis No fracture 8 mm ossified joint body posterior joint space IMPRESSION: Advanced left knee tricompartmental osteoarthritis including severe narrowing medial joint space
== END | disposition home or self-care (01) ==
LOC: CCTX 14:01
PROVIDERS: PCP Nurse Practitioner; Referring Provider Orthopaedic Surgery Adult Reconstructive Orthopaedic Surgery; Visit Provider Orthopaedic Surgery Adult Reconstructive Orthopaedic Surgery
DX: M17.12 Unilateral primary osteoarthritis, left knee (principal); M25.862 Other specified joint disorders, left knee
CPT/HCPCS: 73700

== ENCOUNTER 2025-10-02 08:20 | Day surgery (SDC) | payer MEDICARE, SELFPAY ==
[2025-09-26 07:50] VITALS: BMI 33.1
[2025-09-26 08:35] LABS: Basophils # (Auto) 0.1 Thou/mm3 (0.0-0.2); Basophils % (Auto) 1 % (0-2.5); Eosinophils # (Auto) 0.1 Thou/mm3 (0.0-0.5); Eosinophils % (Auto) 2 % (0-10); Hematocrit 46.9 % (36.0-46.0); Hemoglobin 15.6 g/dL (12.0-16.0); Immature Granulocytes Auto 0.02 Thou/mm3 (0.00-0.00); Lymphocytes # (Auto) 2.4 Thou/mm3 (1.0-4.8); Lymphocytes % (Auto) 36 % (10-50); Mean Corpuscular HGB Conc 33.3 g/dl (31.0-37.0); Mean Corpuscular Hemoglobin 31.7 pg (25.0-35.0); Mean Corpuscular Volume 95 fL (80-100); Monocytes # (Auto) 0.6 Thou/mm3 (0.0-0.8); Monocytes % (Auto) 9 % (0-12); Neutrophils # (Auto) 3.6 Thou/mm3 (1.8-7.7); Neutrophils % (Auto) 52 % (37-80); Nucleated Red Blood Cell # 0.00 Thou/mm3 (0.00-0.00); Nucleated Red Blood Cell % 0 /100 WBC (0); Platelet Count 286 Thou/mm3 (140-440); RDW Standard Deviation 50.5 fL (36.4-46.3); Red Blood Count 4.92 Miln/mm3 (4.00-5.20); White Blood Count 6.9 Thou/mm3 (3.6-11.0)
[2025-09-26 08:45] LABS: INR 1.0 (0.9-1.3); Partial Thromboplastin Time 30.0 Seconds (22.0-36.0); Prothrombin Time 10.3 Seconds (9.0-12.2)
[2025-09-26 08:49] LABS: Alanine Aminotransferase 11 U/L (10-49); Albumin, Serum 4.4 gm/dL (3.4-4.8); Albumin/Globulin Ratio 2.2 (1.2-2.2); Alkaline Phosphatase 74 U/L (46-116); Anion Gap 6 (7-16); Aspartate Amino Transferase 16 U/L (0-34); BUN/Creatinine Ratio 14 Ratio (12-20); Bilirubin,Total 1.0 mg/dL (0.3-1.2); Blood Urea Nitrogen 11 mg/dL (9-23); Calcium 9.5 mg/dL (8.3-10.6); Calcium (Corrected) 9.5 mg/dL (8.5-10.1); Carbon Dioxide 30.9 mMol/L (20.0-31.0); Chloride 109 mMol/L (98-107); Creatinine (Component) 0.8 mg/dL (0.6-1.3); Estimated Creatinine Clearance 75.8 mL/min (>60); Globulin 2.0 gm/dL (2.3-3.5); Glucose 87 mg/dL (74-106); Osmolality,Calculated 288 (275-295); Potassium 4.1 mMol/L (3.4-5.1); Sodium 146 mMol/L (136-145); Total Protein 6.4 gm/dL (5.7-8.2); eGFR > 60 See Note
[2025-10-02] VITALS (13 sets, daily range): BP systolic 124–169; BP diastolic 61–86; PULSE 64–86; RESP 16–24; TEMP 36.1–37; O2SAT 94–99; BMI 32.8; BMI 14.0
[2025-10-02] MEDS: RINGERS LACTATED 1000 ML 1,000 ML 20 ML IV (09:37)
[2025-10-02] MEDS: MELOXICAM 7.5 MG TABLET PO (09:37)
[2025-10-02] MEDS: ACETAMINOPHEN 325 MG TABLET 650 MG PO (09:38)
[2025-10-02] MEDS: PREGABALIN 75 MG CAPSULE PO (09:40)
--- NOTE | 2025-10-02 11:59 | ESOP_ITS ---
Date of Procedure 10/02/25 Pre Op Diagnosis left knee osteoarthritis Post Op Diagnosis left knee osteoarthritis Procedure left total knee replacement [place] Findings full thickness cartilage loss and osteophytes Procedure Description Indication: The patient is a [66] year old who has a long history of left knee pain. X-rays show degenerative arthritis involving the knee. Over the past several years the patient has had increasing pain, progressive limitation in function. He has failed conservative measures including activity modification, physical therapy, injections, anti-inflammatories, and assistive devices. After a lengthy discussion of the risks and benefits, the patient presents now for total knee replacement. The nature and purpose of the total knee replacement, alternative method(s) of treatment, the material risks involved, and the possibility of complications were fully explained to the patient. The patient was told the most common risks and complications associated with a total knee replacement include, but are not limited to blood clots in the leg, fatal pulmonary embolism, dislocation of the prosthesis, intraoperative and postoperative fractures of the femur or tibia, infection, failure of the prosthesis or grafting materials, complications from anesthesia, reactions to blood transfusions, postoperative leg length inequality, instability of the knee replacement, nerve damage or injury, vascular injury, delayed wound healing, infections, other injury or even . In addition, there are risks associated with anesthesia given during this operation, temporary or permanent numbness on the skin lateral to the incision can be a complication unique to total knee surgery, and kneeling can be painful after knee replacement surgery. Also, the patient was told that after undergoing a total knee replacement there may still be pain or disability. We discussed with the patient that we will be using a robot-assisted technology. We discussed that there is a possibility of converting to manual instrumentation. The patient was informed that the success of this operation in part depends upon the mechanical devices which are going to be implanted and that these devices can fail or malfunction, and may need to be repaired or replaced and there are no guarantees as to the longevity of this device or its part and that it or its parts could fail prematurely. Finally, the patient was asked to follow completely and fully with all advice and recommended treatments, and that recovery and ultimate outcome are affected by their compliance with recommended treatment. Surgical technique: Patient was marked and consented in the pre-operative area. The patient was brought to the operating room and placed on the operating table in a supine position. Prior to positioning, a timeout procedure was performed between the surgeon, the anesthesiologist, and the nursing staff where the patient and the operative side were identified and confirmed. After adequate general anesthetic was obtained, the left lower extremity was prepped and draped in the usual sterile fashion. A weight based dose of Cefazolin were administered within 1 hour prior to incision. The robot was preregistered and calirated before the incision. The extremity was exsanguinated with an esmarch badge and tourniquet inflated to 250mmHg. A midline incision was made. A median parapatellar arthrotomy was made. The patella was subluxed laterally. A medial release was performed to expose the medial tibia. His femoral and tibial pins were placed through an intra incisional manner for both cases. Every effort was made to ensure that the distalmost aspect of the pin was hung in the second cortex. The arrays were then tightened several times to ensure that it was fixed for the remainder of the case. Both femoral and tibial checkpoints were then placed. We then went through the registration process of the bone. We then assessed the knee deformity and attempted to correct it. We also used the robot to aid in judging laxity in both extension and flexion. Final based on laxity and alignment we changed the preoperative assessment to obtain proper proper implant positioning and to correct deformity. Attention was then placed to the tibia. We made a tibial cut using the robot ensuring that both the MCL and the patella tendon were protected with retractors. We then went to the femur and made the posterior cut followed by the anterior cut and the anterior chamfer. The bone was then removed and we made a distal femur cut and a posterior chamfer cut. We verified all cuts. A trial reduction was performed with a size 4 femoral component and a size 4 keeled tibial component. The patella was cut and sized to a 31. The patella tracked centrally, and no lateral retinacular release was necessary. The trial implants were removed. The arrays, pins, and checkpoints were all removed. We performed a verification that all pins were removed. The cut bone surfaces were lavaged. A size 4 left femoral component, a size 4 keeled tibial component, and a size 31 patella were impacted into position. The knee was felt to be well balanced in the sagittal and coronal plane. The final 4x11 mm cruciate-substituting articular insert was impacted into the tibial tray. The knee was brought out to full extension, flexed up to 120 degrees. It was stable to varus and valgus stress and appropriately balanced in flexion and extension. The wounds were copiously irrigated following deflation of tourniquet. The medial retinaculum was reapproximated with #1 vicryl and quill. The subcutaneous tissues were closed with 0 and 2-0 interrupted Vicryl. The skin was closed with 3-0 Monofilament V loc suture. A sterile dressing was applied. The patient was transferred to a bed and brought to recovery in stable condition. The patient tolerated the procedure well. There were no intraoperative complications. Sponge and needle counts were correct times 2. As the attending surgeon, I atthodan I was present and performed the entire operation. Grafts/Implants Size 4 CR Femur Size 4 Tibia 10mm poly CS 31mm patella Anesthesia spinal Implants Implants comments: wil Pathology / specimen None Pathology comment: none Estimated Blood Loss 150 Condition Stable Disposition same day Surgeon Vinnie Contreras MD Surgical Staff Operation Date: 10/02/25 12:15 Case Staff Anesthesiologist: Edi Harper RNclerk of scales: Karen Cabrera
--- NOTE | 2025-10-02 12:01 | XR_ITS ---
EXAMINATION: Left knee 2 views TECHNIQUE: AP lateral left knee 2 views INDICATIONS: Postoperative placement today. FINDINGS: Total left knee arthroplasty. Satisfactory alignment. No loosening of the prosthetic components IMPRESSION: Total left knee arthroplasty with satisfactory alignment
--- NOTE | 2025-10-02 12:18 | SUR.PHASEI ---
pt received from OR in recovery bay 4. pt asleep but responds to voice, breathing unlabored on 6l oxymask. v/s stable. pt dressing to left lower extremity cdi. report received from Dr. Harper and Mary FLOYD.
[2025-10-02] MEDS: fentaNYL CIT INJ 50 mCg/ML AMP 2ML IVP ×2 (12:45→14:28)
[2025-10-02] MEDS: HYDROmorphone INJ 2 MG/ML VIAL 0.5 MG IVP (13:01)
--- NOTE | 2025-10-02 15:05 | SUR.PHASEII ---
pt awake and alert, breathing unlabored on room air. v/s stable. pt dressing to left lower extremity cdi. pt cleared by physical therapist Marion. pt able to ambulate to pacu bathroom using walker. d/c instructions given with Michael in room, all questions answered. pt d/c via wheelchair with all belongings.
--- NOTE | 2025-10-05 15:26 | PD.ANESPROG ---
Documentation for date of: 10/05/25 POST ANESTHESIA NOTE: Patient had spinal anesthesia with MAC and L adductor block for L TKA on 10/02/25. I just called and spoke with her on the phone and she denid any problems from anesthesia. She reported her bladder was little full post op but also said Everything is good now, I appreciate you calling, thank you. Edi Harper MD Anesthesia Progress Note Progress Note Most recent Vital Signs: Last Vital Signs Temp 97.2 F 10/02/25 14:45 Pulse 76 10/02/25 14:45 Resp 18 10/02/25 14:45 BP 142/73 H 10/02/25 14:45 Pulse Ox 99 10/02/25 14:45 O2 Flow Rate 3 10/02/25 12:25
== END 2025-10-02 15:05 | disposition home or self-care (01) ==
PROVIDERS: Anesthesiology; PCP Nurse Practitioner; Referring Provider Orthopaedic Surgery Adult Reconstructive Orthopaedic Surgery; Visit Provider Orthopaedic Surgery Adult Reconstructive Orthopaedic Surgery
PROC: (CPT 20985; principal; 2025-10-02 12:15)
DX: M17.12 Unilateral primary osteoarthritis, left knee (principal); M25.762 Osteophyte, left knee
CPT/HCPCS: 20985; 27447; 73560; 97163; A4217; A4649; C1713; C1776; J0690; J1100; J1171; J1200; J2250; J2371; J2704; J2765; J2795; J3010; J3490; J7120; A4648; A9270

== ENCOUNTER 2025-10-17 08:50 | Outpatient (AMB) | payer MEDICARE, SELFPAY ==
--- NOTE | 2025-10-17 09:01 | ORTHONT_ITS ---
Vital signs 10/17/25 09:03 Height 1.65 m Height Method Stated Weight 88.592 kg Weight Measurement Method Standing Scale BMI 32.5 BP 110/75 Blood Pressure Source Automatic Cuff Blood Pressure Location Left Upper Arm Position Sitting Respiration 19 Pulse 86 Pulse Source Monitor Temp 97.9 F Temp Source Temporal Artery Scan Pulse Oximetry (%) 96 Oxygen Delivery Method Room Air Med/Allergies Allergies & Medications Allergies cephalexin (From Keflex) Allergy (Intermediate, Verified 10/17/25 09:02) Rash codeine Allergy (Intermediate, Verified 10/17/25 09:02) itching Sulfa (Sulfonamide Antibiotics) Allergy (Intermediate, Verified 10/17/25 09:02) Rash Medication Reconciliation irbesartan 300 mg tablet 300 mg PO DAILY 03/07/22 [History Confirmed 10/17/25] omeprazole 20 mg capsule,delayed release 10 mg PO QDAY 03/07/22 [History Confirmed 10/17/25] loratadine 10 mg tablet (Claritin) 10 mg PO QDAY 05/05/22 [History Confirmed 10/17/25] atorvastatin 10 mg tablet (Lipitor) 10 mg PO QDAY 05/25/25 [History Confirmed 10/17/25] celecoxib 100 mg capsule 100 mg PO BID 05/25/25 [History Confirmed 10/17/25] amlodipine 5 mg tablet (Norvasc) 5 mg PO QDAY 09/26/25 [History Confirmed 10/17/25] multivitamin (Daily Multi-Vitamin tablet) 1 tab PO QAM 09/26/25 [History Confirmed 10/17/25] acetaminophen 500 mg tablet (Acetaminophen Extra Strength) 1,000 mg (2 x 500 mg) PO Q6H PRN pain #90 tabs 10/02/25 [Rx Confirmed 10/17/25] aspirin 81 mg tablet,delayed release 81 mg PO BID #60 tabs 10/02/25 [Rx Confirmed 10/17/25] doxycycline hyclate 100 mg tablet 100 mg PO BID #14 tabs 10/02/25 [Rx Confirmed 10/17/25] gabapentin 300 mg capsule 300 mg PO .qhs #30 caps 10/02/25 [Rx Confirmed 10/17/25] oxycodone 5 mg tablet 5 mg PO Q6H PRN pain #28 tabs 10/02/25 [Rx Confirmed 10/17/25] sennosides 8.6 mg-docusate sodium 50 mg tablet (Senna-S) 1 tab-cap PO QDAY #30 tabs 10/02/25 [Rx Confirmed 10/17/25] Exam Exam Patient is in no acute distress and is cooperative with the examination today. Breathing is nonlabored. Patient has a normal mood and affect. The patient has a gait that is nonantalgic Bilateral extremities were evaluated and demonstrates sensation intact to light touch. Palpable pedal pulses are present. No significant edema is present. Bilateral hips were examined. The patient has no pain with log roll of the hips. Internal rotation to 30 degrees and external rotation to 30 degrees is painless. Negative FADIR. Left knee incision is clean dry and intact. Knee feels stable varus valgus stress as well as AP translation Assessment and Plan Problem List (1) Degenerative arthritis of knee, bilateral: Status: Acute (2) History of total left knee replacement: Status: Acute Plan: Patient is a 14-year-old female who is 2 weeks status post left total knee replacement who is doing well. She will transition outpatient physical therapy. Will see her back in approximately 4 weeks Advanced Care Planning Discussion Advance care planning discussed with:: patient Office Procedures GNS Level of Care Nursing/Assessment Patient Status: Established Patient Nursing Assessment/Reassesment: Medication Reconciliation, Update PMH in EMR and Vital Signs Coordination of Care: Complex Care and Chronic Disease 1-5, Education Complex Pt/Fam, Consent,records obtained, informed consent, Results/Orders obtained and Staff clarify orders Established Patient Charge Established Patient Point Assignment: 95 Established Patient Point Charge: EP Level 3 (80-115) MA Intake Visit Data Collection New Patient or Established: Established Patient (seen at [facility] within 3 years) Reason for Visit:: 2 WK L TKA Seen by Clinical Staff ONLY (RN/MA): No Supervisor Ride Assembly Required: No PCP or OBGYN visit in last 3 months: Yes Hx Now: No Do You Feel Safe at Home: Yes Authorities Contacted: N/A Questionairres Past Medical History Past Medical History Have you ever been diagnosed with any of the following: Neurological Problems Seizures: No Cardiology Problems Heart Murmur: Yes Hypercholesterolemia: Yes (TAKES MED) Congestive Heart Failure: No Edema: No Cellulitis: No Hypertension: Yes (TAKES MED) Varicose Veins: No Respiratory Problems Chronic Obstructive Pulmonary Disease (COPD): No Pneumonia: No Tuberculosis: No Pulmonary Embolism: No Sleep Apnea: No Smoking: No Smoking Exposure: No Stomache/Intestinal Problems Hepatitis: No Gastroesophageal Reflux Disease: Yes Obesity: Yes Genital/Urinary Problems Renal Disease: No Reproductive Problems Previous Pregnancies: Yes (X4) Musculoskeletal Problems Arthritis: Yes Endocrine Problems Diabetes Mellitus Type 1: No Diabetes Mellitus Type 2: No Other Problems Hospitalization: No Shingles: Yes (2009) Falls: No Blood Transfusions: No Blood Transfusion Reaction: No Anesthesia Reactions: No Chemotherapy: No Radiation Therapy: No MRSA: No Chicken Pox: Yes Measles: Yes Mumps: Yes Rubella ([place] Measles): Yes Cancer: No Surgical History Hysterectomy: No (1 tube and ovary removed) Pacemaker: No Thyroidectomy: No Subjective Visit Visit for: follow up visit and knee Immunization / Flu Flu Vaccine in the Last 12 Months: No Flu Vaccine Exclusion Criteria: No Exclusion Criteria History of Present Illness Chief complaint: 2 WK L TKA Date of injury / onset of symptoms: years Date of 1st surgery (if applicable): left meniscus sx Patient is a pleasant 14-year-old female who is 2 weeks status post left total knee replacement. She is doing well Personal History Occupation: retired Red flag PMH: BMI and other (specify) BMI Counceling provided: Yes Pain Pain level (0-10): 0 Ambulatory data Ambulatory device: none Treatments Improvement with previous injections: No Improvement with PT: No Improvement with NSAIDS: no Review of Systems Review of Systems: All systems negative unless otherwise noted in HPI.
[2025-10-17 09:03] VITALS: BP 110/75; PULSE 86; RESP 19; TEMP 36.6; O2SAT 96; BMI 32.5
== END 2025-10-17 09:22 | disposition home or self-care (01) ==
LOC: HODSRG 08:50
PROVIDERS: PCP Nurse Practitioner; Referring Provider Nurse Practitioner; Supervising Provider Orthopaedic Surgery Adult Reconstructive Orthopaedic Surgery; Visit Provider Orthopaedic Surgery Adult Reconstructive Orthopaedic Surgery
DX: Z47.1 Aftercare following joint replacement surgery (principal); Z96.652 Presence of left artificial knee joint; I10 Essential (primary) hypertension; E66.9 Obesity, unspecified; Z68.32 Body mass index [BMI] 32.0-32.9, adult; M17.11 Unilateral primary osteoarthritis, right knee
CPT/HCPCS: 99213; G0463

== ENCOUNTER 2025-11-14 07:56 | Outpatient (AMB) | payer MEDICARE, SELFPAY ==
[2025-11-14 08:12] VITALS: BP 128/81; PULSE 85; RESP 18; TEMP 36.6; O2SAT 97; BMI 31.3
--- NOTE | 2025-11-14 08:12 | PD.ORTHCLVIS ---
Vital signs 11/14/25 08:12 Height 1.65 m Height Method Measured Weight 85.304 kg Weight Measurement Method Standing Scale BMI 31.3 BP 128/81 Blood Pressure Source Automatic Cuff Blood Pressure Location Left Upper Arm Position Sitting Respiration 18 Pulse 85 Pulse Source Monitor Temp 97.8 F Temp Source Temporal Artery Scan Pulse Oximetry (%) 97 Oxygen Delivery Method Room Air Med/Allergies Allergies & Medications Allergies cephalexin (From Keflex) Allergy (Intermediate, Verified 11/14/25 08:13) Rash codeine Allergy (Intermediate, Verified 11/14/25 08:13) itching Sulfa (Sulfonamide Antibiotics) Allergy (Intermediate, Verified 11/14/25 08:13) Rash Medication Reconciliation irbesartan 300 mg tablet 300 mg PO DAILY 03/07/22 [History Confirmed 11/14/25] omeprazole 20 mg capsule,delayed release 10 mg PO QDAY 03/07/22 [History Confirmed 11/14/25] loratadine 10 mg tablet (Claritin) 10 mg PO QDAY 05/05/22 [History Confirmed 11/14/25] atorvastatin 10 mg tablet (Lipitor) 10 mg PO QDAY 05/25/25 [History Confirmed 11/14/25] celecoxib 100 mg capsule 100 mg PO BID 05/25/25 [History Confirmed 11/14/25] amlodipine 5 mg tablet (Norvasc) 5 mg PO QDAY 09/26/25 [History Confirmed 11/14/25] multivitamin (Daily Multi-Vitamin tablet) 1 tab PO QAM 09/26/25 [History Confirmed 11/14/25] acetaminophen 500 mg tablet (Acetaminophen Extra Strength) 1,000 mg (2 x 500 mg) PO Q6H PRN pain #90 tabs 10/02/25 [Rx Confirmed 11/14/25] aspirin 81 mg tablet,delayed release 81 mg PO BID #60 tabs 10/02/25 [Rx Confirmed 11/14/25] doxycycline hyclate 100 mg tablet 100 mg PO BID #14 tabs 10/02/25 [Rx Confirmed 11/14/25] gabapentin 300 mg capsule 300 mg PO .qhs #30 caps 10/02/25 [Rx Confirmed 11/14/25] oxycodone 5 mg tablet 5 mg PO Q6H PRN pain #28 tabs 10/02/25 [Rx Confirmed 11/14/25] sennosides 8.6 mg-docusate sodium 50 mg tablet (Senna-S) 1 tab-cap PO QDAY #30 tabs 10/02/25 [Rx Confirmed 11/14/25] Exam Exam Patient is in no acute distress and is cooperative with the examination today. Breathing is nonlabored. Patient has a normal mood and affect. The patient has a gait that is nonantalgic Bilateral extremities were evaluated and demonstrates sensation intact to light touch. Palpable pedal pulses are present. No significant edema is present. Bilateral hips were examined. The patient has no pain with log roll of the hips. Internal rotation to 30 degrees and external rotation to 30 degrees is painless. Negative FADIR. Left knee incision is clean dry and intact. Knee feels stable varus valgus stress as well as AP translation. ROM is 0-105 degrees Assessment and Plan Problem List (1) Degenerative arthritis of knee, bilateral: Status: Acute (2) History of total left knee replacement: Status: Acute Plan: Patient is a 14-year-old female who is 6 weeks status post left total knee replacement who is doing well. We will see her back in 3 months as she is going to [place]. (3) History of total right knee replacement: Status: Acute Advanced Care Planning Discussion Advance care planning discussed with:: patient Office Procedures GNS Level of Care Nursing/Assessment Patient Status: Established Patient Nursing Assessment/Reassesment: Medication Reconciliation, Update PMH in EMR and Vital Signs Coordination of Care: Complex Care and Chronic Disease 1-5, Education Complex Pt/Fam, Consent,records obtained, informed consent, Results/Orders obtained and Staff clarify orders Established Patient Charge Established Patient Point Assignment: 95 Established Patient Point Charge: EP Level 3 (80-115) MA Intake Visit Data Collection New Patient or Established: Established Patient (seen at [facility] within 3 years) Reason for Visit:: 4 WEEK FU Seen by Clinical Staff ONLY (RN/MA): No Senior Unix Administrator Required: No PCP or OBGYN visit in last 3 months: Yes Hx Now: No Do You Feel Safe at Home: Yes Authorities Contacted: N/A Questionairres Past Medical History Past Medical History Have you ever been diagnosed with any of the following: Neurological Problems Seizures: No Cardiology Problems Heart Murmur: Yes Hypercholesterolemia: Yes (TAKES MED) Congestive Heart Failure: No Edema: No Cellulitis: No Hypertension: Yes (TAKES MED) Varicose Veins: No Respiratory Problems Chronic Obstructive Pulmonary Disease (COPD): No Pneumonia: No Tuberculosis: No Pulmonary Embolism: No Sleep Apnea: No Smoking: No Smoking Exposure: No Stomache/Intestinal Problems Hepatitis: No Gastroesophageal Reflux Disease: Yes Obesity: Yes Genital/Urinary Problems Renal Disease: No Reproductive Problems Previous Pregnancies: Yes (X4) Musculoskeletal Problems Arthritis: Yes Endocrine Problems Diabetes Mellitus Type 1: No Diabetes Mellitus Type 2: No Other Problems Hospitalization: No Shingles: Yes (2010) Falls: No Blood Transfusions: No Blood Transfusion Reaction: No Anesthesia Reactions: No Chemotherapy: No Radiation Therapy: No MRSA: No Chicken Pox: Yes Measles: Yes Mumps: Yes Rubella ([place]aj[place] Measles): Yes Cancer: No Surgical History Hysterectomy: No (1 tube and ovary removed) Pacemaker: No Thyroidectomy: No Subjective Visit Visit for: follow up visit and knee Immunization / Flu Flu Vaccine in the Last 12 Months: No Flu Vaccine Exclusion Criteria: No Exclusion Criteria History of Present Illness Chief complaint: 4 WEEK FOLLOW UP Date of injury / onset of symptoms: years Date of 1st surgery (if applicable): left meniscus sx Patient is a pleasant 65-year-old female who is 6 weeks status post left total knee replacement. She is doing well Personal History Occupation: retired Red flag PMH: BMI and other (specify) BMI Counceling provided: Yes Pain Pain level (0-10): 0 Ambulatory data Ambulatory device: none Treatments Improvement with previous injections: No Improvement with PT: No Improvement with NSAIDS: no Review of Systems Review of Systems: All systems negative unless otherwise noted in HPI.
--- NOTE | 2025-11-14 08:46 | XR_ITS ---
EXAMINATION: Bilateral AP knees standing single view Left knee PA lateral axial 3 views TECHNIQUE: Bilateral AP knees standing single view Left knee PA flexion standing, standing lateral, axial left knee 3 views total 4 views Date and time: November 14, 2025, 0855 hours INDICATIONS: Left knee replacement 6 weeks ago FINDINGS: Severe narrowing [id number] medial joint space right knee Significant osteoarthritis lateral joint space right knee No fracture Severe osteopenia Total left knee arthroplasty. Satisfactory alignment No patellar dislocation IMPRESSION: Severe narrowing [id number] medial joint space right knee Total left knee arthroplasty with satisfactory alignment
== END 2025-11-14 08:47 | disposition home or self-care (01) ==
LOC: HODSRG 07:56
PROVIDERS: PCP Nurse Practitioner; Referring Provider Nurse Practitioner; Supervising Provider Orthopaedic Surgery Adult Reconstructive Orthopaedic Surgery; Visit Provider Orthopaedic Surgery Adult Reconstructive Orthopaedic Surgery
DX: M17.0 Bilateral primary osteoarthritis of knee (principal); Z96.653 Presence of artificial knee joint, bilateral
CPT/HCPCS: 73564; 99213; G0463